=== PATIENT | male | born 1945 | race Caucasian/White ===

== ENCOUNTER 2017-09-27 10:25 | Emergency (ER) | payer OTHER ==
[2017-09-27 10:30] VITALS: TEMP 97.3; O2SAT 98
--- NOTE | 2017-09-27 10:38 | EDPHY ---
H & P Stated Complaint: multiple neuro complaints, left leg wekaness, left eye vision changes Time Seen by Provider: 09/27/17 10:38 - Personal History Current Tetanus/Diphtheria Vaccine: No Current Tetanus Diphtheria and Acellular Pertussis (TDAP): No - Medical/Surgical History Hx Asthma: No Hx Chronic Respiratory Disease: No Hx Diabetes: No Hx Cardiac Disease: No Hx Renal Disease: No Hx Cirrhosis: No Hx Alcoholism: No Hx HIV/AIDS: No Hx Splenectomy or Spleen Trauma: No Other PMH: appy, tonsilectomy - Social History Smoking Status: Never smoked Constitutional: Initial Vital Signs Temperature (C) 36.3 C 09/27/17 10:27 Heart Rate 69 09/27/17 10:27 Respiratory Rate 18 09/27/17 10:27 Blood Pressure 124/76 H 09/27/17 10:27 O2 Sat (%) 98 09/27/17 10:27 O2 Delivery Mode Room Air O2 (L/minute) 98 Allergies/Adverse Reactions: No Known Allergies Allergy (Unverified 09/27/17 11:18) Home Medications: Medication Instructions Recorded NK [No Known Home Meds] 09/27/17 Medical Decision Making - Diagnostics Imaging Results: Imaging Impressions Head CT 09/27/17 10:46 Impression: 1. Mild atrophy. 2. No acute hemorrhage, hydrocephalus, or mass effect. 3. Cerebrovascular atherosclerosis. 4. No definite acute infarct. 5. Minimal microvascular ischemic gliosis. 6. Consider MRI of the brain, if there is continued clinical concern. Findings and recommendations discussed with Emergency Department physician, Nik Galvez MD at 1135 hour, 09/27/2017. Final report concurs with initial preliminary interpretation. Head CTA 09/27/17 10:46 Impression: 1. 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 2. Mild atherosclerotic plaque in the right carotid bulb without flow-limiting stenosis. 3. Patent vertebrobasilar system. Measurement of carotid stenosis is based on the residual internal carotid diameter with [place] Symptomatic Carotid Endarterectomy Trial (NASCET) based stenosis levels. CT Angiogram of the Brain Clinical Indications: Left leg, right arm, left eye neurologic dysfunction. Technique: CT angiogram of the brain and neck was performed with the uneventful intravenous administration of 85 mL Isovue-370 contrast. Multiplanar reconstructions including 3D reconstructions performed and evaluated on [employer] workstation in order to better evaluate the [place] vessels. Images were manipulated by the radiologist at the computer workstation. Dose reduction techniques were utilized. Findings: Major vessels of the [place] are adequately displayed, demonstrating complete occlusion of the left internal carotid artery from the aortic arch to the paracavernous region. No Evidence of aneurysm, or vascular malformation. Patent vertebrobasilar system. [place] vessels demonstrate flow in bilateral anterior cerebral arteries, bilateral middle cerebral arteries and bilateral posterior cerebral arteries. Bilateral cavernous internal carotid arteries and vertebrobasilar system demonstrates no evidence of flow-limiting stenosis, aneurysm, occlusion, or dissection. Superior sagittal sinus, transverse sinuses, and major veins demonstrate no evidence of intraluminal thrombi. Impression: 1. 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 2. [place] is patent with flow into bilateral anterior, middle and posterior cerebral arteries. 3. Patent vertebrobasilar system. Findings and recommendations discussed with Emergency Department physician, Nik Galvez MD, at 1136 hour, 09/27/2017. Final report concurs with initial preliminary interpretation. A test result has been communicated to a licensed care provider and documented in the [facility] Critical Result system on 09/27/2017 11:44, Message ID [id number]. Neck CTA 09/27/17 10:46 Impression: 1. 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 2. Mild atherosclerotic plaque in the right carotid bulb without flow-limiting stenosis. 3. Patent vertebrobasilar system. Measurement of carotid stenosis is based on the residual internal carotid diameter with [place] Symptomatic Carotid Endarterectomy Trial (NASCET) based stenosis levels. CT Angiogram of the Brain Clinical Indications: Left leg, right arm, left eye neurologic dysfunction. Technique: CT angiogram of the brain and neck was performed with the uneventful intravenous administration of 85 mL Isovue-370 contrast. Multiplanar reconstructions including 3D reconstructions performed and evaluated on [employer] workstation in order to better evaluate the [place] vessels. Images were manipulated by the radiologist at the computer workstation. Dose reduction techniques were utilized. Findings: Major vessels of the [place] are adequately displayed, demonstrating complete occlusion of the left internal carotid artery from the aortic arch to the paracavernous region. No Evidence of aneurysm, or vascular malformation. Patent vertebrobasilar system. [place] vessels demonstrate flow in bilateral anterior cerebral arteries, bilateral middle cerebral arteries and bilateral posterior cerebral arteries. Bilateral cavernous internal carotid arteries and vertebrobasilar system demonstrates no evidence of flow-limiting stenosis, aneurysm, occlusion, or dissection. Superior sagittal sinus, transverse sinuses, and major veins demonstrate no evidence of intraluminal thrombi. Impression: 1. 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 2. [place] is patent with flow into bilateral anterior, middle and posterior cerebral arteries. 3. Patent vertebrobasilar system. Findings and recommendations discussed with Emergency Department physician, Nik Galvez MD, at 1136 hour, 09/27/2017. Final report concurs with initial preliminary interpretation. A test result has been communicated to a licensed care provider and documented in the [facility] Critical Result system on 09/27/2017 11:44, Message ID [id number]. Imaging: Discussed imaging studies w/ biological science aide Radiologist, I viewed and interpreted images myself ED Course/Re-evaluation: CHIEF COMPLAINT: Neuro symptoms HISTORY OF PRESENT ILLNESS: The patient is a 72 y/o male arriving with complaining of loss of coordination, left leg weakness, right hand weakness, and left eye vision changes. He's had neck stiffness for the last 1-2 weeks that he attributes to frequent computer work recently. Last night around 22:30, about 12 hours ago, while sitting his "left leg suddenly collapsed under me and was weak." He tried to eat, rest, and stretch to see if symptoms would improve. He then noticed "purple flashes and blotting out" of the vision in his left eye. This was followed by a general feeling of being uncoordinated and off- balance, but he was able to sleep without issue. This morning his neck stiffness seemed better. His left leg and vision also seemed improved, but not back to baseline. As he was getting dressed he noticed his right hand felt "uncoordinated and not where I thought it should be," which caused difficulty getting dressed. He denies facial weakness or numbness, speech changes, headache , fever, recent trauma, or recent illness. He has never experienced these symptoms previously and denies prior history of migraine, hypertension, hyperlipidemia, cardiac disease, respiratory disease, or any medications. REVIEW OF SYSTEMS: A 10 point review of systems was performed and is negative with the exception of the elements mentioned in the history of present illness. PHYSICAL EXAM: HR, BP, O2 Sat, RR. Temp noted General Appearance: Alert, well hydrated, appropriate, and non-toxic appearing. Head: Atraumatic without scalp tenderness or obvious injury Eyes: Pupils equal, round, reactive to light and accommodation, EOMI, no trauma , no injection. Ears: Clear bilaterally, no perforation, normal landmarks Nose: Atraumatic, no rhinorrhea, clear. Throat: There is no erythema or exudates, no lesions, normal tonsils, mucus membranes moist. Neck: Supple, nontender, no lymphadenopathy. Respiratory: No retractions, no distress, no wheezes, and no accessory muscle use. Lungs are clear to auscultation bilaterally. Cardiovascular: Regular rate and rhythm, no murmurs, rubs, or gallops. Good capillary refill all extremities. Gastrointestinal: Abdomen is soft, nontender, non-distended, no masses, no rebound, no guarding, no peritoneal signs. Musculoskeletal: Normal active ROM of all extremities, atraumatic. Neurological: Alert, appropriate, and interactive. The patient has non-focal cranial nerves, motor, sensory, and cerebellar exam, subjective weakness of right arm and left leg. Skin: No rashes, good turgor, no nodules on palpation. Past medical history: Denies Past surgical history: Denies Family history: Noncontributory Social history: at bedside. 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 Sinus mechanism. Diffusely inverted T waves. No old EKG available for comparison. Rate 61. See hard copy and/or "tracemaster" electronic copy for interpretation. CT Head: No hemorrhage Repeat 12 lead EKG was interpreted by myself. Sinus mechanism with inverted T waves. See hard copy and/or "tracemaster" electronic copy for interpretation. CTA head and neck: completely occluded left carotid with extensive acute clot, open right carotid, normal [place] Brain MRI: deferred in favor of rapid transport to [facility] Critical care time spent by me, Dr. Galvez, exclusively with this patient was 40 minutes, exclusive of PA time and exclusive of procedures. The organ system at risk was brain. Time spent in serial assessments of the patient, discussion with patient and his family, consideration of TPA and other interventions, neurology and radiology consultation, review of CT scans, and arranging emergent helicopter transfer to [facility]. DIFFERENTIAL DIAGNOSIS: The differential diagnosis for the patient's neurologic deficits included but was not limited to peripheral causes, central causes including CVA, TIA, electrolyte abnormalities and dehydration, cardiogenic causes, atypical causes like migraine syndrome. MEDICAL DECISION MAKING: This is a 72 y/o male with no reported prior medical history who presents with a just over 12-hour history of subjective left leg weakness, right hand weakness and loss of coordination, and left eye vision changes. He appears restless, but otherwise has a nonfocal exam. Concern for showering emboli vs atypical migraines. Plan for IV, labs, EKG, brain imaging. EKG is abnormal with diffuse inverted T waves. CTAs show complete acutely occluded left carotid from aortic arch up, open right carotid 1144: Consulted with Dr. Walsh, [facility] neurology. He accepts transfer via helicopter to their facility for intervention. He does not recommend anticoagulation. Patient took a full dose aspirin en route to the ED this morning. - Data Points Laboratory Results: Laboratory Results 09/27/17 10:51 09/27/17 10:51 09/27/17 09/27/17 09/27/17 10:57 10:51 10:51 WBC 4.90 10^3/uL 10^3/uL (3.80-9.50) RBC 4.47 10^6/uL 10^6/uL (4.40-6.38) Hgb 15.6 g/dL g/dL (13.7-17.5) POC Hgb 16.0 gm/dL gm/dL (13.7-17.5) Hct 45.1 % % (40.0-51.0) POC Hct 47 % % (40-51) MCV 100.9 fL H fL (81.5-99.8) MCH 34.9 pg H pg (27.9-34.1) MCHC 34.6 g/dL g/dL (32.4-36.7) RDW 11.7 % % (11.5-15.2) Plt Count 218 10^3/uL 10^3/uL (150-400) MPV 10.2 fL fL (8.7-11.7) Neut % (Auto) 62.2 % % (39.3-74.2) Lymph % (Auto) 23.3 % % (15.0-45.0) [place] % (Auto) 13.1 % H % (4.5-13.0) Eos % (Auto) 0.6 % % (0.6-7.6) Baso % (Auto) 0.6 % % (0.3-1.7) Nucleat RBC Rel Count 0.0 % % (0.0-0.2) Absolute Neuts (auto) 3.05 10^3/uL 10^3/uL (1.70-6.50) Absolute Lymphs (auto) 1.14 10^3/uL 10^3/uL (1.00-3.00) Absolute Monos (auto) 0.64 10^3/uL 10^3/uL (0.30-0.80) Absolute Eos (auto) 0.03 10^3/uL 10^3/uL (0.03-0.40) Absolute Basos (auto) 0.03 10^3/uL 10^3/uL (0.02-0.10) Absolute Nucleated RBC 0.00 10^3/uL 10^3/uL (0-0.01) Immature Gran % 0.2 % % (0.0-1.1) Immature Gran # 0.01 10^3/uL 10^3/uL (0.00-0.10) POC Sodium 142 mEq/L mEq/L (135-145) Sodium 141 mEq/L mEq/L (135-145) POC Potassium 4.0 mEq/L mEq/L (3.3-5.0) Potassium 4.2 mEq/L mEq/L (3.5-5.2) POC Chloride 103 mEq/L mEq/L (97-110) Chloride 105 mEq/L mEq/L (97-110) Carbon Dioxide 26 mEq/l mEq/l (22-31) Anion Gap 10 mEq/L mEq/L (8-16) POC BUN 21 mg/dL mg/dL (7-23) BUN 22 mg/dL mg/dL (7-23) Creatinine 0.8 mg/dL mg/dL (0.7-1.3) POC Creatinine 0.9 mg/dL mg/dL (0.7-1.3) Estimated GFR > 60 Glucose 73 mg/dL mg/dL (70-100) POC Glucose 80 mg/dL mg/dL (70-100) Calcium 9.8 mg/dL mg/dL (8.5-10.4) Point of Care Test Results: 09/27/17 10:57 POC Sodium 142 POC Potassium 4.0 POC Chloride 103 POC BUN 21 POC Creatinine 0.9 POC Glucose 80 Departure - Departure Disposition: Acute Care Hospital Not [facility] Clinical Impression: Acute ischemic stroke, Left carotid artery occlusion Condition: Serious Referrals: Wes Turcios MD [Primary Care Provider] - As per Instructions Report Scribed for: Nik Galvez Report Scribed by: France López Date of Report: 09/27/17 Time of Report: 10:39
--- NOTE | 2017-09-27 10:54 | CPEKG ---
Heart Rate: 61 RR Interval: 984 P-R Interval: 152 QRSD Interval: 108 QT Interval: 492 QTC Interval: 496 P [place]: 87 QRS [place]: 93 T Wave [place]: 252 EKG Severity - ABNORMAL ECG - EKG Impression: SINUS RHYTHM EKG Impression: PROBABLE LEFT ATRIAL ABNORMALITY EKG Impression: LEFT POSTERIOR FASCICULAR BLOCK EKG Impression: BORDERLINE INFERIOR Q WAVES EKG Impression: ABNORMAL T, PROBABLE ISCHEMIA, ANT-LAT LEADS EKG Impression: BORDERLINE PROLONGED QT INTERVAL Electronically Signed By: Nik Galvez 27-Sep-2017 13:51:09
[2017-09-27 11:08] LABS: PLATELET COUNT 218 10^3/uL (150-400)
[2017-09-27] MEDS ORDERED: IOPAMIDOL (ISOVUE 370) 100 ML BTL IV ONE (11:10)
--- NOTE | 2017-09-27 11:39 | CPEKG ---
Heart Rate: 58 RR Interval: 1034 P-R Interval: 156 QRSD Interval: 112 QT Interval: 500 QTC Interval: 492 P [place]: 89 QRS [place]: 95 T Wave [place]: 237 EKG Severity - ABNORMAL ECG - EKG Impression: SINUS RHYTHM EKG Impression: REJI, CONSIDER BIATRIAL ABNORMALITIES EKG Impression: NONSPECIFIC INTRAVENTRICULAR CONDUCTION DELAY EKG Impression: BORDERLINE INFERIOR Q WAVES Electronically Signed By: Nik Galvez 27-Sep-2017 13:51:09
[2017-09-27 11:52] VITALS: BP 118/93; PULSE 61; RESP 17
== END 2017-09-27 12:04 | disposition short-term general hospital (02) ==
DX: I63.9 Cerebral infarction, unspecified (principal); I65.22 Occlusion and stenosis of left carotid artery
CPT/HCPCS: 70450; 70496; 70498; 93005; 99291; Q9967; 82947-QW

== ENCOUNTER 2018-07-23 17:50 | Emergency (ER) | payer OTHER ==
--- NOTE | 2018-07-23 18:42 | EDPHY ---
H & P Stated Complaint: Cough~1mo;noted blood in sputum this afternoon Time Seen by Provider: 07/23/18 18:08 HPI/ROS: CHIEF COMPLAINT: Cough x1 month HISTORY OF PRESENT ILLNESS: 73-year-old male with prior CVA on Eliquis presents with an ongoing cough. Onset of runny nose, sore throat and cough 1 month ago. The cough has persisted and is mainly dry. 1 episode of hemoptysis just prior to arrival, streaks of blood in sputum. Associated with decreased appetite and fatigue. No shortness breath, dizziness, fever or chills. REVIEW OF SYSTEMS: complete 10 point ROS reviewed and is negative except for the noted elements in the HPI - Personal History Current Tetanus Diphtheria and Acellular Pertussis (TDAP): No - Medical/Surgical History Hx Asthma: No Hx Chronic Respiratory Disease: No Hx Diabetes: No Hx Cardiac Disease: No Hx Renal Disease: No Hx Cirrhosis: No Hx Alcoholism: No Hx HIV/AIDS: No Hx Splenectomy or Spleen Trauma: No Other PMH: appy, tonsilectomy. CVA 09/2017 - Social History Smoking Status: Never smoked Alcohol Use: Sober Drug Use: None - Physical Exam Exam: General Appearance: Alert, pleasant, nontoxic-appearing Eyes: Pupils equal and round, no conjunctival pallor or injection ENT, Mouth: Mucous membranes moist Neck: Normal inspection Respiratory: Normal respiratory rate, rales right lower lung field Cardiovascular: Regular rate and rhythm Gastrointestinal: Abdomen is soft and nontender Neurological: A&O, nonfocal, normal gait Skin: Warm and dry Extremities: Normal inspection Psychiatric: Mood and affect normal Constitutional: Initial Vital Signs Temperature (C) 36.8 C 07/23/18 17:55 Heart Rate 84 07/23/18 17:55 Respiratory Rate 18 07/23/18 17:55 Blood Pressure 96/67 L 07/23/18 17:55 O2 Sat (%) 95 07/23/18 17:55 O2 Delivery Mode Room Air Allergies/Adverse Reactions: No Known Allergies Allergy (Verified 07/23/18 17:54) Home Medications: Medication Instructions Recorded Apixaban [Eliquis] 5 mg PO BID 07/23/18 Benzonatate [Tessalon Pearles (RX)] 100 mg PO TID PRN #15 cap 07/23/18 levOFLOXACIN [levAQUIN (*)] 750 mg PO DAILY #7 tab 07/23/18 Medical Decision Making - Diagnostics Imaging Results: Imaging Impressions Chest X-Ray 07/23/18 18:09 Impression: Right middle lobe consolidative opacity compatible with pneumonia, underlying mass cannot be radiographically excluded. Short-term radiographic surveillance is recommended to complete resolution.. Dr. Cortés was notified of these findings by telephone at 6:25 PM on 07/23/2018 Imaging: Discussed imaging studies w/ crew caller Radiologist ED Course/Re-evaluation: This patient presents with pneumonia. He is an appropriate patient for outpatient treatment of pneumonia. He is tolerating oral fluids well and has normal vital signs, including oxygen saturation. Warning signs discussed with the patient and his . Levaquin prescribed. Initial BP noted, d/w pt, does not feel dizzy. Repeat BP 108/75. Encouraged pt to drink plenty of fluids, return for worsening symptoms or any concerns. - Data Points Medications Given: Discontinued Medications Levofloxacin (Levaquin) 750 mg PO EDNOW ONE PRN Reason: Protocol Stop: 07/23/18 18:47 Last Admin: 07/23/18 18:52 Dose: 750 mg Departure - Departure Disposition: Home, Routine, Self-Care Clinical Impression: Pneumonia Qualifiers: Pneumonia type: due to unspecified organism Laterality: right Lung location: middle lobe of lung Qualified Code(s): J18.1 - Lobar pneumonia, unspecified organism Condition: Good Instructions: Levofloxacin (By mouth), Bacterial Pneumonia (ED) Additional Instructions: You have pneumonia in the right middle lobe of the lung. Drink plenty of fluids. Take antibiotics as prescribed. Return for worsening symptoms, including shortness of breath or increasing bloody sputum. Follow-up with Dr. Turcios in 2-3 days for recheck. Also follow up with Dr. Turcios for repeat chest x-ray when you are feeling better. Referrals: Wes Turcios MD [Medical Doctor] - 2-3 days, if not improved Prescriptions: Benzonatate [Tessalon Pearles (RX)] 100 mg PO TID PRN #15 cap PRN Reason: cough levOFLOXACIN [levAQUIN (*)] 750 mg PO DAILY #7 tab
[2018-07-23 18:59] VITALS: BP 108/75
== END 2018-07-23 19:16 | disposition home or self-care (01) ==
DX: J18.1 Lobar pneumonia, unspecified organism (principal); Z79.01 Long term (current) use of anticoagulants; Z86.73 Personal history of transient ischemic attack (TIA), and cerebral infarction without residual deficits